=== PATIENT | male | born 1975 | race Hispanic/Latino ===

== ENCOUNTER 2018-02-20 15:25 | Emergency (ER) | payer OTHER ==
[2018-02-20] MEDS ORDERED: Sodium Chloride 0.9% 1,000 ML IV ONE (16:17)
[2018-02-20] MEDS ORDERED: Sodium Chloride 0.9% 1,000 ML ONE (16:24)
[2018-02-20 16:38] LABS: URINE BILIRUBIN NEGATIVE (NEGATIVE); URINE BLOOD NEGATIVE (NEGATIVE); URINE CLARITY Clear (Clear); URINE COLOR Yellow (YELLOW); URINE GLUCOSE (UA) 3+ mg/dL (Normal); URINE LEUKOCYTE ESTERASE NEG Leu/uL (Negative); URINE PROTEIN NEGATIVE (NEGATIVE); URINE UROBILINOGEN NORMAL mg/dL (0.2-1.0)
[2018-02-20 16:41] LABS: BASO % 0.2 % (0.0-2.0); EOS # 0.1 K/uL (0.0-0.7); EOS % 1.2 % (0.0-4.0); HEMOGLOBIN 16.4 g/dL (12.0-18.0); LYMPH # 1.7 K/uL (1.0-4.3); LYMPH % 26.9 % (20.0-40.0); MEAN CELL VOLUME 78.6 fL (80.0-94.0); MEAN CORPUSCULAR HEMOGLOBIN 26.7 pg (27.0-31.0); MEAN PLATELET VOLUME 7.1 fL (7.2-11.7); MONO # 0.7 K/uL (0.0-0.8); NEUT # 3.7 K/uL (1.8-7.0); NEUT % 60.7 % (50.0-75.0); NRBC % 0.6 % (0.0-2.0); RBC 6.14 Mil/uL (4.40-5.90); RED CELL DISTRIBUTION WIDTH 13.6 % (11.5-14.5); WHITE BLOOD COUNT 6.1 K/uL (4.8-10.8)
[2018-02-20 16:46] LABS: ALB/GLOB RATIO 1.7 (1.0-2.1); ALBUMIN 4.5 g/dL (3.5-5.0); ALT/SGPT 32 U/L (21-72); AST/SGOT 20 U/L (17-59); BLOOD UREA NITROGEN 11 mg/dL (9-20); CALCIUM 9.1 mg/dl (8.6-10.4); GFR AFRICAN-AMERICAN > 60; GFR NON-AFRICAN AMERICAN > 60; LIPASE 163 U/L (23-300)
[2018-02-20] MEDS ORDERED: Potassium Chloride 20 mEq ER Tab PO STA (16:54)
[2018-02-20] MEDS ORDERED: Potassium Chloride 20 mEq ER Tab PO ONE (17:07)
--- NOTE | 2018-02-20 17:21 | C.PDOC ---
History Of Present Illness <Mamie Boykin - Last Filed: 02/20/18 18:22> <KhadarZeferino - Last Filed: 02/21/18 14:00> 43year old male, comes to ER with complaints of 5 days of vomiting and diarrhea. Patient states he was evaluated at [facility] [place] 3 days ago, had bloodwork done and given IV fluids and was prescribed Zofran and Pepcid. Patient states his vomiting has resolved but he still has persistent watery non-bloody diarrhea. Patient reports he has been drinking Gatorade as well. He reports sick contacts at work with similar symptoms. He denies any fever, chills, abdominal pain and offers no other medical complaints. (Mamie Boykin) History Per: Patient History/Exam Limitations: no limitations Onset/Duration Of Symptoms: Days Current Symptoms Are (Timing): Still Present Radiation Of Pain To:: None Associated Symptoms: Vomiting, Diarrhea. denies: Fever, Chills, Nausea, Back Pain, Chest Pain, Urinary Symptoms Additional History Per: Patient <Mamie Boykin - Last Filed: 02/20/18 18:22> <Zeferino Rubalcava - Last Filed: 02/21/18 14:00> Time Seen by Provider: 02/20/18 15:56 Chief Complaint (Nursing): Abdominal Pain Past Medical History Reviewed: Historical Data, Nursing Documentation, Vital Signs - Medical History PMH: Back Problems, Diabetes, HTN Surgical History: No Surg Hx Family History: States: Unknown Family Hx - Social History Hx Tobacco Use: No Hx Alcohol Use: Yes Hx Substance Use: No - Immunization History Hx Tetanus Toxoid Vaccination: No Hx Influenza Vaccination: No Hx Pneumococcal Vaccination: No <Mamie Boykin - Last Filed: 02/20/18 18:22> Vital Signs: Last Vital Signs Temp 98 F 02/20/18 17:30 Pulse 78 02/20/18 17:30 Resp 18 02/20/18 17:30 BP 136/72 02/20/18 17:30 Pulse Ox 99 02/20/18 18:22 - [facility] Procedures TETANUS TOXOID ADMINIST (09/30/13) Review Of Systems Except As Marked, All Systems Reviewed And Found Negative. Constitutional: Negative for: Fever, Chills Cardiovascular: Negative for: Chest Pain Respiratory: Negative for: Shortness of Breath Gastrointestinal: Positive for: Nausea, Vomiting, Diarrhea. Negative for: Abdominal Pain <Mamie Boykin - Last Filed: 02/20/18 18:22> Physical Exam - Physical Exam Appears: Non-toxic, No Acute Distress Skin: Warm, Dry Head: Atraumatic, Normacephalic Eye(s): bilateral: Normal Inspection, EOMI Oral Mucosa: Moist Neck: Normal ROM, Supple Chest: Symmetrical Cardiovascular: Rhythm Regular Respiratory: Normal Breath Sounds Gastrointestinal/Abdominal: Normal Exam, Soft, No Tenderness, No Mass, No Guarding, No Rebound Back: Normal Inspection Extremity: Normal ROM Neurological/Psych: Oriented x3, Normal Speech Gait: Steady <Mamie Boykin - Last Filed: 02/20/18 18:22> ED Course And Treatment - Laboratory Results Result Diagrams: 02/20/18 16:27 02/20/18 16:27 O2 Sat by Pulse Oximetry: 99 (RA) Pulse Ox Interpretation: Normal <Mamie Boykin - Last Filed: 02/20/18 18:22> - Laboratory Results Result Diagrams: 02/20/18 16:27 02/20/18 16:27 <Zeferino Rubalcava - Last Filed: 02/21/18 14:00> Medical Decision Making <Mamie Boykin - Last Filed: 02/20/18 18:22> <Zeferino Rubalcava - Last Filed: 02/21/18 14:00> Medical Decision Making: Impression: Viral illness, vomiting and diarrhea Plan: -- Labs -- Urinalysis -- IV Fluids -- Pepcid 20mg IV Patient declined any imaging, just wants IV fluids for hydration Progress: 1654 Labs reviewed, patient with low potassium levels. KCl 20meq PO given. No other acute findings 1718 Patient reports feeling much better and is stable for discharge home. Abdomen was soft non-distended and not tender. He has no fever, vital sign stable. Instructed to follow up with PMD in 2-3 days. (Mamie Boykin) Disposition Counseled Patient/Family Regarding: Diagnosis, Need For Followup, Rx Given - Disposition Disposition Time: 17:18 - POA Present On Arrival: None <Mamie Boykin - Last Filed: 02/20/18 18:22> <Zeferino Rubalcava - Last Filed: 02/21/18 14:00> - Disposition Referrals: [facility] [Outside] [facility] [Outside] Disposition: HOME/ ROUTINE Condition: IMPROVED Additional Instructions: Follow up with your primary medical doctor or clinic in 2-5 days for further evaluation. Take medications as prescribed. Return to the emergency department at any time if symptoms persist or worsen. 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 <Zeferino Rubalcava - Last Filed: 02/21/18 14:00>
--- NOTE | 2018-02-20 17:21 | C.PDOC ---
Time Seen by Provider: 02/20/18 15:56 Chief Complaint (Nursing): Abdominal Pain Past Medical History Vital Signs: Last Vital Signs Temp 98.4 F 02/20/18 15:31 Pulse 95 H 02/20/18 15:31 Resp 20 02/20/18 15:31 BP 135/88 02/20/18 15:31 Pulse Ox 99 02/20/18 15:31 - Medical History PMH: Back Problems, Diabetes, HTN - [facility] Procedures TETANUS TOXOID ADMINIST (09/30/13) Family History: States: Unknown Family Hx - Social History Hx Tobacco Use: No Hx Alcohol Use: Yes Hx Substance Use: No - Immunization History Hx Tetanus Toxoid Vaccination: No Hx Influenza Vaccination: No Hx Pneumococcal Vaccination: No ED Course And Treatment - Laboratory Results Result Diagrams: 02/20/18 16:27 02/20/18 16:27 O2 Sat by Pulse Oximetry: 99 Disposition - Disposition Prescriptions: Atropine/Diphenoxylate [Lonox 0.025 MG-2.5 MG] 1 tab PO PRN PRN #10 tab PRN Reason: Diarrhea Pantoprazole Sodium [Protonix] 20 mg PO DAILY #20 ect Forms: [employer] [facility] (Tunisian) - Scribe Statement The provider has reviewed the documentation as recorded by the Scribe (Tigre Daniels) All medical record entries made by the Scribe were at my direction and personally dictated by me. I have reviewed the chart and agree that the record accurately reflects my personal performance of the history, physical exam, medical decision making, and the department course for this patient. I have also personally directed, reviewed, and agree with the discharge instructions and disposition.
[2018-02-20 17:31] VITALS: BP 136/72; PULSE 78; RESP 18; TEMP 98
[2018-02-20 17:52] VITALS: O2SAT 99
== END 2018-02-20 17:31 | disposition home or self-care (01) ==
LOC: C.ER 15:25
DX: R19.7 Diarrhea, unspecified (principal); E87.6 Hypokalemia
CPT/HCPCS: 80053; 81001; 83690; 85025; 96374; 99284; J7030

== ENCOUNTER 2018-12-23 17:48 | Emergency (ER) | payer OTHER ==
[2018-12-23 17:52] VITALS: RESP 20
--- NOTE | 2018-12-23 18:11 | C.PDOC ---
History Of Present Illness 43 year old male presents to the ED status post dog bite to right lip 4 days ago. Reports he was trying to break up a fight between his dog and another dog when his dog accidentally bit his lip. Notes he bled a little but it was not a deep cut. The following day he noticed difficulty whistling but did not pay much attention to it. The next day he noticed asymmetry of lips on the right side when smiling and loss of taste. Reports he went to the clinic today and reported his symptoms and was told to go to the ED to get a CT scan. He was given Augmentin for the dog bite. Also states he was seen at the Urgent Care facility 2-3 days ago and had cerumen removed from his left ear but they were unable to remove it from his right ear even after irrigation. He was given Dobrex. Denies any fever, chills, chest pain, shortness of breath, nausea, vomiting, diarrhea, headache, dizziness, or any other associated symptoms. Chief Complaint (Nursing): Bite History Per: Patient History/Exam Limitations: no limitations Onset/Duration Of Symptoms: Days Current Symptoms Are (Timing): Still Present Location Of Injury: Right: Face (dog bite ) - Animal Bite Description Of The Animal: Family Pet Past Medical History Reviewed: Historical Data, Nursing Documentation, Vital Signs Vital Signs: Last Vital Signs Temp 97.5 F L 12/23/18 17:50 Pulse 89 12/23/18 17:50 Resp 20 12/23/18 17:50 BP 136/95 H 12/23/18 17:50 Pulse Ox 96 12/23/18 17:50 - Medical History PMH: Back Problems, Diabetes, HTN Surgical History: Coronary Stent - [facility] Procedures TETANUS TOXOID ADMINIST (09/30/13) Family History: States: No Known Family Hx - Social History Hx Tobacco Use: No Hx Alcohol Use: Yes Hx Substance Use: No - Immunization History Hx Tetanus Toxoid Vaccination: No Hx Influenza Vaccination: No Hx Pneumococcal Vaccination: No Review Of Systems Constitutional: Negative for: Fever, Chills Cardiovascular: Negative for: Chest Pain Respiratory: Negative for: Cough, Shortness of Breath Skin: Negative for: Rash Neurological: Positive for: Weakness (right side of face), Numbness (right side of face). Negative for: Headache, Dizziness Physical Exam - Physical Exam Appears: Non-toxic, No Acute Distress Skin: Warm, Dry, No Rash Head: Normacephalic, Other (decreased sensation of right mandible, inability to raise right eyebrow, flattening of right nasolabial fold, weakness of right cheek ) Ear(s): Left: Normal, Right: TM Obscured By Wax, Bilateral: Other (no edema, no erythema, no tenderness to periauricular area) Nose: Normal Oral Mucosa: Moist Tongue: Normal Appearing Lips: Other (Drooping angle of the mouth on the right side, healed abrasion on right upper lip ) Teeth: Normal Dentition Gingiva: Normal Appearing Neck: Supple Chest: Symmetrical Cardiovascular: Rhythm Regular Respiratory: Normal Breath Sounds, No Accessory Muscle Use Neurological/Psych: Oriented x3, Normal Speech Gait: Steady ED Course And Treatment - Laboratory Results Result Diagrams: 12/23/18 18:49 12/23/18 18:49 O2 Sat by Pulse Oximetry: 96 (RA) Pulse Ox Interpretation: Normal - CT Scan/US CT HEAD Other Rad Studies (CT/US): Read By Radiologist, Radiology Report Reviewed CT/US Interpretation: Name:RAUL BAILEY Exam Date:Dec 23, 2018 8:03:48 PM EDT. Modality Type:CT. Description:CT - BRAIN. Gender:M Laterality:Not applicable. :75 Referring Physician:Dwaine Mccormick. EXAM: CT Head Without IV contrast. CLINICAL HISTORY: Mckeon/s palsy. TECHNIQUE: Axial computed tomography images of the head/brain without intravenous contrast. COMPARISON: None provided. FINDINGS: BRAIN: No acute intraparenchymal hemorrhage. No mass lesion. No CT evidence for acute territorial infarct. No midline shift or extra-axial collections. VENTRICLES: No hydrocephalus. ORBITS: The orbits are unremarkable. SINUSES AND MASTOIDS: The paranasal sinuses and mastoid air cells are clear. BONES: No fracture. SOFT TISSUES: Unremarkable. IMPRESSION: No acute intracranial abnormality. . Electronically signed on Dec 23, 2018 8:24:05 PM EDT by: Marlin Gutierrez M.D., Certified by ABR, Diagnostic Radiology. Mastoids CT Other Rad Studies (CT/US): Read By Radiologist, Radiology Report Reviewed CT/US Interpretation: Name:RAUL BAILEY Exam Date:Dec 23, 2018 8:07:18 PM EDT. Modality Type:CT. Description:CT - MASTOID. Gender:M Laterality:Not applicable. :75 Referring Physician:Dwaine Mccormick. EXAM: CT Temporal Bones Without IV contrast. CLINICAL HISTORY: R/o mastoiditis, bells palsy. TECHNIQUE: Axial computed tomography images of the temporal bones without intravenous contrast. CONTRAST: Without. COMPARISON: None provided. FINDINGS: RIGHT OSSICLES AND MIDDLE EAR: The ossicles are intact. No middle ear fluid. RIGHT COCHLEA: Normal 2- 1/2 turns. RIGHT VESTIBULE: Unremarkable. RIGHT SEMICIRCULAR CANALS: No dehiscence. RIGHT VESTIBULAR AND COCHLEAR AQUEDUCTS: No enlargement. RIGHT FACIAL NERVE CANAL: No widening. RIGHT INTERNAL AUDITORY CANAL: No enlargement. RIGHT EXTERNAL AUDITORY CANAL: Small to moderate amount of soft tissue/debris is present within, without associated findings. RIGHT CAROTID CANAL: No aberrancy. RIGHT JUGULAR FORAMEN: No enlargement. RIGHT MASTOID AIR CELLS: Clear. RIGHT TEMPOROMANDIBULAR JOINT: No dislocation. LEFT OSSICLES AND MIDDLE EAR: The ossicles are intact. No middle ear fluid. LEFT COCHLEA: Normal 2-1/2 turns. LEFT VESTIBULE: Unremarkable. LEFT SEMICIRCULAR CANALS: No dehiscence. LEFT VESTIBULAR AND COCHLEAR AQUEDUCTS: No enlargement. LEFT FACIAL NERVE CANAL: No widening. LEFT INTERNAL AUDITORY CANAL: No enlargement. LEFT EXTERNAL AUDITORY CANAL: Patent. LEFT CAROTID CANAL: No aberrancy. LEFT JUGULAR FORAMEN: No enlargement. LEFT MASTOID AIR CELLS: Clear. LEFT TEMPOROMANDIBULAR JOINT: No dislocation. BONES: No acute osseous abnormality. VISUALIZED PARANASAL SINUSES: Clear. PERIAURICULAR SOFT TISSUES: Unremarkable. IMPRESSION: Small amount of soft tissue/debris within the right external auditory canal, without associated findings, otherwise normal temporal bones. . Electronically signed on Dec 23, 2018 9:34:51 PM EDT by: Marlin Gutierrez M.D., Certified by ABR, Diagnostic Radiology. Medical Decision Making Medical Decision Making: Plan - CT head and CT mastoids ordered and reviewed - Labs- elevated LFTs and lyme pending - Valtrex and Pred given now and will continue as outpatient - Tetanus given - patient advised to Continue Augmentin for treatment of Dog bite - Follow up with PMD, Neurologist, and Pulp Refiner Operator for further evaluation - patient advised to patch eye if unable to close it - Follow up with PMD regarding elevated liver enzymes - patient verbalizes understanding and is in agreement with plan - patient is stable for discharge Disposition Counseled Patient/Family Regarding: Studies Performed, Diagnosis, Need For Followup, Rx Given - Disposition Referrals: [facility] [Outside] Kaz Rose MD [Staff Provider] - Berhane Das [Staff Provider] - Disposition: HOME/ ROUTINE Disposition Time: 21:50 Condition: STABLE Additional Instructions: RAUL BAILEY, thank you for letting us take care of you today. Your provider was Jewel Selby DO and you were treated for DOG BITE. The emergency me dical care you received today was directed at your acute symptoms. If you were prescribed any medication, please fill it and take as directed. It may take several days for your symptoms to resolve. Return to the Emergency Department if your symptoms worsen, do not improve, or if you have any other problems. Please review handout on Mckeon's Palsy You have been given copies of CT reports as well as lab results Lyme test is still pending- please contact ED tomorrow for results Use meds as instructed Follow up with PMD, Neurologist, and Pulp Refiner Operator for further evaluation Patch eye if unable to close it Follow up with PMD regarding elevated liver enzymes Continue Augmentin for treatment of Dog bite If you had an X-Ray or CT scan: A Radiologist will review the ED reading if any change in treatment is needed we will contact you. If you had a blood, urine, or wound culture: It will take several days for the results, if any change in treatment is needed we will contact you. Thank you for allowing the [facility] team to be part of your care today. Prescriptions: Mineral Oil/Petrolatum,White [Systane Nighttime Eye Oint] 1 inch OD HS #1 tube predniSONE [predniSONE Tab] 80 mg PO DAILY 6 Days #24 tab Propylene Glycol/Peg 400 [Systane Gel Eye Drops] 1 drop OD QID #1 bottle Valacyclovir HCl [Valtrex] 1,000 mg PO TID 7 Days #20 tablet Instructions: Animal Bites (DC), Mckeon's Palsy (DC) Forms: [facility] (Djiboutian), Work Excuse - Clinical Impression Clinical Impression: Animal bite wound, Mckeon's palsy - PA / WOOL SACKER / Resident Statement MD/DO has reviewed & agrees with the documentation as recorded. - Scribe Statement The provider has reviewed the documentation as recorded by the Scribe Nakia Garibay All medical record entries made by the Scribe were at my direction and personally dictated by me. I have reviewed the chart and agree that the record accurately reflects my personal performance of the history, physical exam, medical decision making, and the department course for this patient. I have also personally directed, reviewed, and agree with the discharge instructions and disposition.
[2018-12-23 18:55] LABS: BASO # 0.1 K/uL (0.0-0.2); BASO % 0.9 % (0.0-2.0); EOS # 0.2 K/uL (0.0-0.7); EOS % 2.8 % (0.0-4.0); HEMOGLOBIN 14.9 g/dL (12.0-18.0); LYMPH # 1.3 K/uL (1.0-4.3); LYMPH % 19.5 % (20.0-40.0); MEAN CELL VOLUME 79.1 fL (80.0-94.0); MEAN CORPUSCULAR HEMOGLOBIN 26.1 pg (27.0-31.0); MEAN PLATELET VOLUME 7.2 fL (7.2-11.7); MONO # 0.7 K/uL (0.0-0.8); MONO % 10.1 % (0.0-10.0); NEUT # 4.3 K/uL (1.8-7.0); NEUT % 66.7 % (50.0-75.0); RBC 5.71 Mil/uL (4.40-5.90); RED CELL DISTRIBUTION WIDTH 14.6 % (11.5-14.5); WHITE BLOOD COUNT 6.4 K/uL (4.8-10.8)
[2018-12-23 19:13] LABS: ALBUMIN 4.2 g/dL (3.5-5.0); ALT/SGPT 190 U/L (21-72); AST/SGOT 103 U/L (17-59); BLOOD UREA NITROGEN 16 mg/dL (9-20); CALCIUM 10.3 mg/dl (8.6-10.4); GFR NON-AFRICAN AMERICAN > 60
[2018-12-23] MEDS ORDERED: Tdap Vaccine 0.5 ml Vial (10-64 yrs) IM ONE ×2 (21:25→21:34)
[2018-12-23 22:05] VITALS: BP 139/73; PULSE 74; TEMP 97.9
--- NOTE | 2018-12-24 08:16 | CT ---
Date of service: 12/23/2018 PROCEDURE: CT HEAD WITHOUT CONTRAST. HISTORY: reece's palsy COMPARISON: None available. TECHNIQUE: Axial computed tomography images were obtained through the head/brain without intravenous contrast. Radiation dose: Total exam DLP = 1194.88 mGy-cm. This CT exam was performed using one or more of the following dose reduction techniques: Automated exposure control, adjustment of the mA and/or kV according to patient size, and/or use of iterative reconstruction technique. FINDINGS: HEMORRHAGE: No intracranial hemorrhage. BRAIN: Jara-white matter differentiation is preserved. There is no mass, mass effect or abnormal extra-axial fluid collection. There is no territorial infarction. The midline sagittal structures are normal. VENTRICLES: The ventricles are normal in size, shape and configuration. CALVARIUM: There is no calvarial fracture or extracranial soft tissue swelling. PARANASAL SINUSES: Predominantly clear. MASTOID AIR CELLS: Predominantly clear. OTHER FINDINGS: None. IMPRESSION: No acute intracranial abnormality. A preliminary report was provided by [employer].
--- NOTE | 2018-12-24 13:05 | CT ---
Date of service: 12/23/2018 PROCEDURE: CT OF THE TEMPORAL BONES WITHOUT CONTRAST HISTORY: r/o mastoiditis; h/o bells palsy COMPARISON: None available. TECHNIQUE: High resolution axial images of the temporal bones were obtained. Coronal and sagittal reformats were generated. Radiation dose: Total exam DLP = 821.48 mGy-cm. This CT exam was performed using one or more of the following dose reduction techniques: Automated exposure control, adjustment of the mA and/or kV according to patient size, and/or use of iterative reconstruction technique. FINDINGS: RIGHT TEMPORAL BONE: RIGHT MIDDLE EAR: Normal. RIGHT INNER EAR: Cochlea: Normal. Semicircular canals: Normal. RIGHT MASTOID AIR CELLS: Normal. RIGHT INTERNAL AUDITORY CANAL: Normal. RIGHT EXTERNAL AUDITORY CANAL: There is abnormal lobular soft tissue in the deep external auditory canal lateral to the tympanic membrane. RIGHT VESTIBULAR AND COCHLEAR AQUEDUCT: Normal. OTHER FINDINGS: None. LEFT TEMPORAL BONE: LEFT MIDDLE EAR: Normal. LEFT INNER EAR: Cochlea: Normal. Semicircular canals: Normal. LEFT MASTOID AIR CELLS: Normal. LEFT INTERNAL AUDITORY CANAL: Normal. LEFT EXTERNAL AUDITORY CANAL: Normal. LEFT VESTIBULAR AND COCHLEAR AQUEDUCTS: Normal. OTHER FINDINGS: None. IMPRESSION: Unremarkable non contrast enhanced CT of the temporal bones. Lobular soft tissue/debris in the deep right external auditory canal lateral to the tympanic membrane. A preliminary report was provided by [employer].
[2018-12-24 17:14] LABS: LYME IGG NEGATIVE (NEGATIVE)
[2018-12-24 17:17] LABS: LYME IGM NEGATIVE (NEGATIVE)
[2018-12-25 17:53] VITALS: O2SAT 96
== END 2018-12-23 22:03 | disposition home or self-care (01) ==
LOC: C.ER 17:48
DX: S01.551D Open bite of lip, subsequent encounter (principal); W54.0XXD Bitten by dog, subsequent encounter; G51.0 Bell's palsy